=== PATIENT | male | born 1985 | race Hispanic/Latino ===

== ENCOUNTER 2017-04-05 00:57 | Inpatient (IN) | payer BC ==
[2017-04-05] MEDS ORDERED: Sodium Chloride 0.9% 1,000 ML IV ONE (01:18)
[2017-04-05] MEDS ORDERED: Iohexol 240 (50 ml) PO ONE (01:18)
[2017-04-05 02:00] LABS: RBC URINE 1 /hpf (0-3); URINE BILIRUBIN NEGATIVE (NEGATIVE); URINE BLOOD NEGATIVE (NEGATIVE); URINE COLOR Yellow (YELLOW); URINE GLUCOSE (UA) NORMAL (Normal); URINE KETONE NEGATIVE (NEGATIVE); URINE LEUKOCYTE ESTERASE NEG Leu/uL (Negative); URINE PROTEIN NEGATIVE (NEGATIVE); URINE UROBILINOGEN NORMAL mg/dL (0.2-1.0); WBC URINE < 1 /hpf (0-5)
[2017-04-05 02:00] LABS: BASO % 0.4 % (0.0-2.0); EOS # 0.1 K/uL (0.0-0.7); EOS % 1.3 % (0.0-4.0); HEMATOCRIT 41.9 % (35.0-51.0); LYMPH # 2.9 K/uL (1.0-4.3); LYMPH % 29.7 % (20.0-40.0); MEAN CELL VOLUME 91.1 fL (80.0-94.0); MEAN CORPUSCULAR HEMOGLOBIN 30.5 pg (27.0-31.0); MEAN CORPUSCULAR HGB CONC 33.5 g/dL (33.0-37.0); MEAN PLATELET VOLUME 7.6 fL (7.2-11.7); MONO # 0.4 K/uL (0.0-0.8); MONO % 4.7 % (0.0-10.0); RED CELL DISTRIBUTION WIDTH 12.8 % (11.5-14.5); WHITE BLOOD COUNT 9.6 K/uL (4.8-10.8)
--- NOTE | 2017-04-05 02:10 | C.PDOC ---
History Of Present Illness 32 year old patient presents to the ED complaining of a sudden onset of abdominal pain. Patient states the pain is in his left quadrants and mid- epigastric. Patient has a history of colitis and gets humira injections. Patient denies dysuria, hematuria, nausea or vomiting. Time Seen by Provider: 04/05/17 01:18 Chief Complaint (Nursing): Abdominal Pain History Per: Patient History/Exam Limitations: no limitations Onset/Duration Of Symptoms: Sudden Onset Current Symptoms Are (Timing): Still Present Context: Other Severity: Moderate Pain Scale Rating Of: 4 Location Of Pain/Discomfort: Epigastric, LUQ, LLQ Radiation Of Pain To:: None Quality Of Discomfort: "Pain" Exacerbating Factors: None Alleviating Factors: None Last Bowel Movement: Today Recent travel outside of the [place]: No Past Medical History Reviewed: Historical Data, Nursing Documentation, Vital Signs Vital Signs: Last Vital Signs Temp 97.8 F 04/05/17 01:05 Pulse 84 04/05/17 01:05 Resp 14 04/05/17 01:05 BP 124/75 04/05/17 01:05 Pulse Ox 97 04/05/17 04:23 Family History: States: Unknown Family Hx - Social History Hx Alcohol Use: No Hx Substance Use: No - Immunization History Hx Tetanus Toxoid Vaccination: Yes Hx Influenza Vaccination: Yes Hx Pneumococcal Vaccination: No Review Of Systems Except As Marked, All Systems Reviewed And Found Negative. Gastrointestinal: Positive for: Abdominal Pain (left quadrants; mid epigastric) . Negative for: Nausea, Vomiting Genitourinary: Negative for: Dysuria, Hematuria Physical Exam - Physical Exam Appears: Non-toxic, Other (mild distress) Skin: Warm, Dry Head: Atraumatic, Normacephalic Neck: Normal ROM, Supple Chest: Symmetrical Cardiovascular: Rhythm Regular Respiratory: Normal Breath Sounds, No Rales, No Rhonchi, No Wheezing Gastrointestinal/Abdominal: Soft, Tenderness (bilateral left quadrants), No Guarding, Rebound (questionable) Back: Normal Inspection, No CVA Tenderness Extremity: Normal ROM Neurological/Psych: Oriented x3 Gait: Steady ED Course And Treatment - Laboratory Results Result Diagrams: 04/05/17 01:52 04/05/17 01:52 O2 Sat by Pulse Oximetry: 97 (room air) Pulse Ox Interpretation: Normal - CT Scan/US Abdomen/Pelvis CT Other Rad Studies (CT/US): Read By Radiologist (Sanford Haq MD), Radiology Report Reviewed CT/US Interpretation: EXAM: CT Abdomen and Pelvis With Intravenous Contrast. CLINICAL HISTORY: 32 years old, male; Pain; Abdominal pain. TECHNIQUE: Axial computed tomography images of the abdomen and pelvis with intravenous. contrast. This CT exam was performed using one or more of the following dose reduction. techniques: automated exposure control, adjustment of the mA and/or kV according to patient size,. and/or use of iterative reconstruction technique. Coronal and sagittal reformatted images were. created and reviewed. COMPARISON: No relevant prior studies available. FINDINGS: Lower thorax: No acute findings. ABDOMEN: Liver: Unremarkable. No mass. Gallbladder and bile ducts: Small stones in the gallbladder. Gallbladder otherwise unremarkable. Pancreas: Unremarkable. No mass. No ductal dilation. Spleen: Unremarkable. No splenomegaly. Adrenals: Unremarkable. No mass. Kidneys and ureters: Unremarkable. No solid mass. No hydronephrosis. Stomach and bowel: Moderate fecal retention in the colon consistent with constipation. Appendix: Mucosal thickening in the appendix which measures 9 mm in diameter. Surrounding. inflammation. PELVIS: Bladder: Unremarkable. No mass. Reproductive: Unremarkable as visualized. ABDOMEN and PELVIS: Intraperitoneal space: Unremarkable. No free air. No significant fluid collection. Bones/joints: No acute fracture. No dislocation. Soft tissues: Unremarkable. Vasculature: Unremarkable. No abdominal aortic aneurysm. Lymph nodes: Unremarkable. No enlarged lymph nodes. IMPRESSION: 1. Mucosal thickening in the appendix which measures 9 mm in diameter. Surrounding. inflammation. Findings consistent with acute appendicitis. No rupture. 2. Small stones in the gallbladder. Gallbladder otherwise unremarkable. 3. Moderate fecal retention in the colon consistent with constipation. Progress Note: Plan: Abdomen/Pelvis CT, Labs, IV fluids, Iohexol, Toradol Disposition Discussed With : Panda Gao Doctor Will See Patient In The: Hospital Counseled Patient/Family Regarding: Diagnosis - Disposition Disposition: HOSPITALIZED Disposition Time: 04:15 Condition: STABLE - POA Present On Arrival: None - Clinical Impression Clinical Impression: Abdominal pain, Acute appendicitis - Scribe Statement The provider has reviewed the documentation as recorded by the Cassi Willoughby Provider Attestation: All medical record entries made by the Teresaibalison were at my direction and personally dictated by me. I have reviewed the chart and agree that the record accurately reflects my personal performance of the history, physical exam, medical decision making, and the department course for this patient. I have also personally directed, reviewed, and agree with the discharge instructions and disposition.
[2017-04-05 02:16] LABS: CHLORIDE 100 mmol/L (98-107)
[2017-04-05 02:17] LABS: POTASSIUM 4.1 mmol/L (3.6-5.2); SODIUM 140 mmol/L (132-148)
[2017-04-05 02:19] LABS: ALB/GLOB RATIO 1.7 (1.0-2.1); ALKALINE PHOSPHATASE 72 U/L (38-126); AST/SGOT 28 U/L (17-59); BILIRUBIN,TOTAL 0.5 mg/dL (0.2-1.3); BLOOD UREA NITROGEN 16 mg/dL (9-20); CARBON DIOXIDE 28 mmol/L (22-30); GFR AFRICAN-AMERICAN > 60; GLUCOSE,RANDOM 87 mg/dL (75-110); TOTAL PROTEIN 6.5 g/dL (6.3-8.3)
[2017-04-05 02:20] LABS: ALT/SGPT 35 U/L (21-72); CALCIUM 8.5 mg/dl (8.6-10.4)
[2017-04-05] MEDS ORDERED: Morphine 4 MG/ML VIAL IV PRN ×2 (05:15)
[2017-04-05] MEDS: Ciprofloxacin 400mg/200ml D5W 400 MG/200 ML BAG IVPB SCH ×2 (05:36→17:08)
[2017-04-05] MEDS: Lactated Ringer's 1,000 ML IV SCH ×3 (05:40→21:51)
[2017-04-05] MEDS: metroNIDAZOLE IV 500 mg/100 ml 500 MG/100 ML BAG IVPB SCH ×3 (05:44→21:50)
--- NOTE | 2017-04-05 05:47 | CP.PCM.HP ---
<Clarice Patterson - Last Filed: 04/05/17 05:42> History of Present Illness - History of Present Illness History of Present Illness: Surgery: Dr. Gao CC: bilateral lower abdominal pain HPI: Patient is a 32 y/o male w/ pmh of UC currently taking Humira shots presents complaining of acute onset of bilateral lower abdominal pain. He reports the pain as severe and sharp. He reports pain in similar area in the past but never this severe. He denies n/v until given contrast for imaging. He denies f/c. He reports tolerating dinner around 8pm without difficulty. He states his last BM was yesterday and was reported as normal. He states he recovered from a recent bout of gastroenteritis 1 week ago. He was seen by primary care doctor who prescribed Zantac. He reports compliance w/ his humira shots. He states he feels pressure in the epigastric region of his stomach as well which makes him feel somewhat short of breath. He denies left side chest pain, syncope, diaphoresis. PMH: ulcerative colitis, bipolar depression PSH: colonoscopy Social: denies etoh, tobacco, or drug use Present on Admission - Present on Admission Any Indicators Present on Admission: No Review of Systems - Constitutional Constitutional: absent: Anorexia, Chills, Fever - EENT Eyes: absent: Blurred Vision, Change in Vision Ears: absent: Disequilibrium, Dizziness Nose/Mouth/Throat: absent: Epistaxis, Nasal Trauma - Cardiovascular Cardiovascular: absent: Chest Pain, Leg Edema - Respiratory Respiratory: As Per HPI. absent: Cough, Wheezing - Gastrointestinal Gastrointestinal: Abdominal Pain. absent: Bloating, Constipation, Diarrhea, Hematochezia, Melena, Nausea, Vomiting - Genitourinary Genitourinary: absent: Hematuria, Pyuria - Musculoskeletal Musculoskeletal: absent: Numbness, Tingling - Integumentary Integumentary: absent: Sores, Wounds - Neurological Neurological: absent: Syncope, Weakness - Psychiatric Psychiatric: Anxiety, Depression - Endocrine Endocrine: absent: Polydipsia, Polyphagia - Hematologic/Lymphatic Hematologic: absent: Easy Bleeding, Easy Bruising Past Patient History - Past Social History Smoking Status: Never Smoked - GASTROINTESTINAL Hx Gastrointestinal Disorders: Yes Hx Colitis: Yes (Ulcerative Colitis ) Other/Comment: Ulcerative Colitis - PSYCHIATRIC Hx Substance Use: No - SURGICAL HISTORY Hx Surgeries: Yes (colonoscopy ) - ANESTHESIA Hx Anesthesia: Yes (colonoscopy ) Meds Allergies/Adverse Reactions: Allergies Allergy/AdvReac Type Severity Reaction Status Date / Time cefaclor [From Ceclor] Allergy Verified 04/05/17 01:11 Physical Exam - Constitutional Appears: Well, Non-toxic, No Acute Distress - Head Exam Head Exam: ATRAUMATIC, NORMOCEPHALIC - Eye Exam Eye Exam: EOMI, Normal appearance - ENT Exam ENT Exam: Mucous Membranes Moist, Normal Oropharynx - Respiratory Exam Respiratory Exam: NORMAL BREATHING PATTERN. absent: Respiratory Distress - Cardiovascular Exam Cardiovascular Exam: REGULAR RHYTHM. absent: Tachycardia - GI/Abdominal Exam GI & Abdominal Exam: Guarding (bilateral left and right lower abdomen ), Soft, Tenderness (right and left lower abdomen, suprapubic tenderness ). absent: Distended, Rebound, Rigid - Extremities Exam Extremities exam: Positive for: normal inspection. Negative for: calf tenderness - Back Exam Back exam: absent: CVA tenderness (L), CVA tenderness (R) - Neurological Exam Neurological exam: Alert, Oriented x3 - Psychiatric Exam Psychiatric exam: Normal Affect, Normal Mood - Skin Skin Exam: Dry, Intact, Normal Color, Warm Results - Vital Signs Recent Vital Signs: Last Vital Signs Temp 97.8 F 04/05/17 01:05 Pulse 84 04/05/17 01:05 Resp 14 04/05/17 01:05 BP 124/75 04/05/17 01:05 Pulse Ox 97 04/05/17 04:26 - Labs Result Diagrams: 04/05/17 01:52 04/05/17 01:52 Assessment & Plan - Assessment and Plan (Free Text) Assessment: 32 y/o male w/ abdominal pain 2/2 possible appendicitis vs ulcerative colitis flare Plan: -NPO -IVFs -IV abx -Protonix -pain control -nausea control -SCDs -am labs -review imaging -possible OR pending attending evaluation -further recs per Dr. Gao AKWhite PGY1 <Panda Gao - Last Filed: 04/07/17 22:41> Results - Vital Signs Recent Vital Signs: Last Vital Signs Temp 97.6 F 04/06/17 23:12 Pulse 61 04/06/17 23:12 Resp 20 04/06/17 23:12 BP 103/64 04/06/17 23:12 Pulse Ox 95 05/20/17 23:12 - Labs Result Diagrams: 04/06/17 13:36 04/06/17 13:36 Attending/Attestation - Attestation I have personally seen and examined this patient.: Yes I have fully participated in the care of the patient.: Yes I have reviewed all pertinent clinical information: Yes Notes (Text): 04/07/17 22:41 Pt was seen and examined at bedside on 04/05/17 Agree with above note and assessment Pt with Upper and Lower abdominal pain and Ulcerative Colitis No clinical evidence of Acute appendicitis C.w current mx Plan d.w pt in detail Risk and benefit explained in detail.
--- NOTE | 2017-04-05 09:06 | RAD ---
HISTORY: chest pain COMPARISON: None available. TECHNIQUE: Chest, one view. FINDINGS: Examination limited by habitus. LUNGS: No focal consolidation. Please note that chest x-ray has limited sensitivity for the detection of pulmonary masses. PLEURA: No significant pleural effusion identified. No definite pneumothorax . CARDIOVASCULAR: The cardiomediastinal silhouette appears within normal limits of size. OSSEOUS STRUCTURES: No acute osseous abnormality identified. VISUALIZED UPPER ABDOMEN: Unremarkable. OTHER FINDINGS: None. IMPRESSION: No focal consolidation, significant pleural effusion, or definite pneumothorax identified.
--- NOTE | 2017-04-05 09:28 | CT ---
PROCEDURE: CT Abdomen and Pelvis with contrast HISTORY: abd pain COMPARISON: None. TECHNIQUE: Contrast dose: 100 mL Omnipaque 350 Radiation dose: Total exam DLP = 3536.25 mGy-cm. This CT exam was performed using one or more of the following dose reduction techniques: Automated exposure control, adjustment of the mA and/or kV according to patient size, and/or use of iterative reconstruction technique. FINDINGS: LOWER THORAX: Unremarkable. LIVER: Cholelithiasis. No mural thickening or pericholecystic fluid. GALLBLADDER AND BILE DUCTS: Unremarkable. PANCREAS: Unremarkable. No gross lesion or ductal dilatation. SPLEEN: Unremarkable. ADRENALS: Unremarkable. No mass. KIDNEYS AND URETERS: Unremarkable. No hydronephrosis. No solid mass. VASCULATURE: Unremarkable. No aortic aneurysm. BOWEL: Unremarkable. No obstruction. No gross mural thickening. APPENDIX: The appendix is distended with fluid measuring 9-10 mm in diameter. Periappendiceal inflammatory change and a small amount of ольга fluid are noted. No periappendiceal abscess. No free intraperitoneal air. Findings consistent with uncomplicated acute appendicitis. PERITONEUM: Unremarkable. No free fluid. No free air. LYMPH NODES: No retroperitoneal or pelvic lymphadenopathy. Few mildly enlarged mesenteric nodes medial to the cecum and proximal ascending colon. . BLADDER: Unremarkable. REPRODUCTIVE: Normal prostate BONES: No acute fracture. OTHER FINDINGS: None. IMPRESSION: Findings consistent with acute uncomplicated appendicitis. No periappendiceal abscess or evidence of free intraperitoneal air. Cholelithiasis without evidence of cholecystitis. No other significant abnormality.
[2017-04-06] MEDS: Lactated Ringer's 1,000 ML IV SCH ×2 (04:16→17:15)
[2017-04-06] MEDS: Ciprofloxacin 400mg/200ml D5W 400 MG/200 ML BAG IVPB SCH ×2 (04:18→17:06)
[2017-04-06] MEDS: metroNIDAZOLE IV 500 mg/100 ml 500 MG/100 ML BAG IVPB SCH ×3 (05:40→21:23)
--- NOTE | 2017-04-06 12:05 | CP.PCM.PN ---
Subjective - Date & Time of Evaluation Date of Evaluation: 04/06/17 Time of Evaluation: 08:16 - Subjective Subjective: SURGERY NOTE FOR DR. DAVIES 32M seen and examined at bedside. Patient states pain is improving, denies nausea, vomiting. Objective - Vital Signs/Intake and Output Vital Signs (last 24 hours): Temp Pulse Resp BP Pulse Ox 98.2 F 77 20 101/65 94 L 04/06/17 00:00 04/06/17 00:00 04/06/17 00:00 04/06/17 00:00 04/06/17 00:00 Intake and Output: 04/06/17 04/06/17 06:59 18:59 Intake Total 1000 1025 Balance 1000 1025 - Medications Medications: Current Medications Divalproex Sodium (Depakote Er) 1,000 mg PO [facility] Docusate Sodium (Colace) 100 mg PO BID [facility] Last Admin: 04/06/17 10:07 Dose: 100 mg Home Med (Adalimumab [Humira Pen]) 40 mg SC DAILY [facility] Ciprofloxacin (Cipro 400mg/200ml Dsw) 400 mg in 200 mls @ 133 mls/hr IVPB Q12H [facility] Last Admin: 04/06/17 04:18 Dose: 133 mls/hr Metronidazole (Flagyl) 500 mg in 100 mls @ 100 mls/hr IVPB Q8 [facility] Last Admin: 04/06/17 05:40 Dose: 100 mls/hr Lactated Ringer's (Lactated Ringer's) 1,000 mls @ 125 mls/hr IV .Q8H [facility] Last Admin: 04/06/17 04:16 Dose: 125 mls/hr [facility]) [facility] Last Admin: 04/06/17 10:07 Dose: 200 mg Morphine Sulfate (Morphine) 4 mg IV Q4 PRN PRN Reason: Pain, moderate (4-7) Last Admin: 04/05/17 07:38 Dose: 4 mg Morphine Sulfate (Morphine) 6 mg IV Q6 PRN PRN Reason: Pain, severe (8-10) Last Admin: 04/05/17 17:57 Dose: 6 mg Ondansetron HCl (Zofran Inj) 4 mg IVP Q4 PRN PRN Reason: Nausea/Vomiting Last Admin: 04/05/17 17:57 Dose: 4 mg Pantoprazole Sodium (Protonix Inj) 40 mg IVP DAILY [facility] Last Admin: 04/06/17 10:07 Dose: 40 mg Sertraline HCl (Zoloft) 75 mg PO HS [facility] - Constitutional Appears: Non-toxic, No Acute Distress - Head Exam Head Exam: ATRAUMATIC - Respiratory Exam Respiratory Exam: Clear to Ausculation Bilateral, NORMAL BREATHING PATTERN - Cardiovascular Exam Cardiovascular Exam: REGULAR RHYTHM, +S1, +S2 - GI/Abdominal Exam GI & Abdominal Exam: Soft, Tenderness (very mildly in RLQ and epigastric). absent: Distended, Firm, Guarding, Rigid, Rebound - Neurological Exam Neurological Exam: Alert, Awake Assessment and Plan - Assessment and Plan (Free Text) Assessment: 32M with hx of ulcerative colitis presents with acute uncomplicated appendicitis as per CT - continue antibiotic - serial abdominal exams Further recs discuss with Dr Sima Martinez, PGY1
[2017-04-06 13:47] LABS: CHLORIDE 98 mmol/L (98-107)
[2017-04-06 13:48] LABS: POTASSIUM 4.1 mmol/L (3.6-5.2); SODIUM 139 mmol/L (132-148)
[2017-04-06 13:49] LABS: BASO % 0.3 % (0.0-2.0); EOS # 0.1 K/uL (0.0-0.7); HEMATOCRIT 37.7 % (35.0-51.0); LYMPH # 2.4 K/uL (1.0-4.3); LYMPH % 26.2 % (20.0-40.0); MEAN CELL VOLUME 92.2 fL (80.0-94.0); MEAN CORPUSCULAR HEMOGLOBIN 31.2 pg (27.0-31.0); MEAN CORPUSCULAR HGB CONC 33.8 g/dL (33.0-37.0); MEAN PLATELET VOLUME 7.6 fL (7.2-11.7); MONO # 0.8 K/uL (0.0-0.8); MONO % 9.4 % (0.0-10.0); RED CELL DISTRIBUTION WIDTH 12.8 % (11.5-14.5)
[2017-04-06 13:50] LABS: GFR AFRICAN-AMERICAN > 60
[2017-04-06 13:51] LABS: BLOOD UREA NITROGEN 8 mg/dL (9-20); CARBON DIOXIDE 33 mmol/L (22-30); GLUCOSE,RANDOM 99 mg/dL (75-110)
[2017-04-06 17:39] VITALS: RESP 20
[2017-04-06] MEDS ORDERED: Divalproex 500 mg ER Tab PO SCH (22:00)
[2017-04-07 00:40] VITALS: BP 103/64; PULSE 61; TEMP 97.6; O2SAT 95
[2017-04-07] MEDS: Ciprofloxacin 400mg/200ml D5W 400 MG/200 ML BAG IVPB SCH (05:00)
[2017-04-07] MEDS: metroNIDAZOLE IV 500 mg/100 ml 500 MG/100 ML BAG IVPB SCH (06:49)
--- NOTE | 2017-04-07 11:43 | CP.PCM.DIS ---
Provider - Provider Date of Admission: 04/05/17 04:16 Attending physician: Panda Gao MD Time Spent in preparation of Discharge (in minutes): 5 Diagnosis - Discharge Diagnosis (1) Appendicitis Status: Suspected Hospital Course - Lab Results Lab Results: Most Recent Lab Values WBC 9.0 K/uL (4.8-10.8) 04/06/17 13:36 RBC 4.09 Mil/uL (4.40-5.90) L 04/06/17 13:36 Hgb 12.7 g/dL (12.0-18.0) 04/06/17 13:36 Hct 37.7 % (35.0-51.0) 04/06/17 13:36 MCV 92.2 fL (80.0-94.0) 04/06/17 13:36 MCH 31.2 pg (27.0-31.0) H 04/06/17 13:36 MCHC 33.8 g/dL (33.0-37.0) 04/06/17 13:36 RDW 12.8 % (11.5-14.5) 04/06/17 13:36 Plt Count 163 K/uL (130-400) 04/06/17 13:36 MPV 7.6 fL (7.2-11.7) 04/06/17 13:36 Neut % (Auto) 63.1 % (50.0-75.0) 04/06/17 13:36 Lymph % (Auto) 26.2 % (20.0-40.0) 04/06/17 13:36 Geary % (Auto) 9.4 % (0.0-10.0) 04/06/17 13:36 Eos % (Auto) 1.0 % (0.0-4.0) 04/06/17 13:36 Baso % (Auto) 0.3 % (0.0-2.0) 04/06/17 13:36 Neut # 5.7 K/uL (1.8-7.0) 04/06/17 13:36 Lymph # 2.4 K/uL (1.0-4.3) 04/06/17 13:36 Geary # 0.8 K/uL (0.0-0.8) 04/06/17 13:36 Eos # 0.1 K/uL (0.0-0.7) 04/06/17 13:36 Baso # 0.0 K/uL (0.0-0.2) 04/06/17 13:36 Sodium 139 mmol/L (132-148) 04/06/17 13:36 Potassium 4.1 mmol/L (3.6-5.2) 04/06/17 13:36 Chloride 98 mmol/L (98-107) 04/06/17 13:36 Carbon Dioxide 33 mmol/L (22-30) H 04/06/17 13:36 Anion Gap 12 (10-20) 04/06/17 13:36 BUN 8 mg/dL (9-20) L 04/06/17 13:36 Creatinine 1.1 MG/DL (0.8-1.5) 04/06/17 13:36 Est GFR ( Amer) > 60 04/06/17 13:36 Est GFR (Non-Af Amer) > 60 04/06/17 13:36 Random Glucose 99 mg/dL (75-110) 04/06/17 13:36 Calcium 9.0 mg/dl (8.6-10.4) 04/06/17 13:36 Total Bilirubin 0.5 mg/dL (0.2-1.3) 04/05/17 01:52 AST 28 U/L (17-59) 04/05/17 01:52 ALT 35 U/L (21-72) 04/05/17 01:52 Alkaline Phosphatase 72 U/L (38-126) 04/05/17 01:52 Total Creatine Kinase 44 U/L (55-170) L 04/05/17 08:39 CK-MB (Mass) < 0.22 ng/mL (0.0-3.38) 04/05/17 08:39 Troponin I, Quant 0.0170 ng/mL (0.00-0.120) 04/05/17 08:39 Total Protein 6.5 g/dL (6.3-8.3) 04/05/17 01:52 Albumin 4.1 g/dL (3.5-5.0) 04/05/17 01:52 Globulin 2.4 gm/dL (2.2-3.9) 04/05/17 01:52 Albumin/Globulin Ratio 1.7 (1.0-2.1) 04/05/17 01:52 Lipase 44 U/L (23-300) 04/05/17 01:52 Urine Color Yellow (YELLOW) 04/05/17 01:54 Urine Clarity Clear (Clear) 04/05/17 01:54 Urine pH 6.0 (5.0-8.0) 04/05/17 01:54 Ur Specific Semmes 1.013 (1.003-1.030) 04/05/17 01:54 Urine Protein Negative mg/dL (NEGATIVE) 04/05/17 01:54 Urine Glucose (UA) Normal mg/dL (Normal) 04/05/17 01:54 Urine Ketones Negative mg/dL (NEGATIVE) 04/05/17 01:54 Urine Blood Negative (NEGATIVE) 04/05/17 01:54 Urine Nitrate Negative (NEGATIVE) 04/05/17 01:54 Urine Bilirubin Negative (NEGATIVE) 04/05/17 01:54 Urine Urobilinogen Normal mg/dL (0.2-1.0) 04/05/17 01:54 Ur Leukocyte Esterase Neg Sebastián/uL (Negative) 04/05/17 01:54 Urine WBC (Auto) < 1 /hpf (0-5) 04/05/17 01:54 Urine RBC (Auto) 1 /hpf (0-3) 04/05/17 01:54 Ur Squamous Epith Cells < 1 /hpf (0-5) 04/05/17 01:54 - Hospital Course Hospital Course: 32M with PMHx of UC on Humira, was admitted to for RLQ abdominal pain with suspected appendicitis. Due to pt's hx of UC he was treated conservatively with IV ABX and pain management. His white count remained normal and he was afebrile throughout the course of the hospital stay. This morning pt states he feels well , admits to tolerating a diet and ambulating. Denies N/V, F/C. Pt ok to DC home with PO ABX. Will f/u in 1-2 weeks. He is advised to return to the ER if symptoms return or condition worsens. Discharge Exam - Head Exam Head Exam: ATRAUMATIC, NORMOCEPHALIC - Eye Exam Eye Exam: Normal appearance - ENT Exam ENT Exam: Mucous Membranes Moist - Respiratory Exam Respiratory Exam: NORMAL BREATHING PATTERN - Cardiovascular Exam Cardiovascular Exam: RRR - GI/Abdominal Exam GI & Abdominal Exam: Soft. absent: Distended, Guarding, Tenderness - Extremities Exam Extremities exam: full ROM - Neurological Exam Neurological exam: Alert, Oriented x3 - Skin Skin Exam: Dry, Intact, Warm Discharge Plan - Discharge Medications Prescriptions: Ciprofloxacin HCl [Cipro] 500 mg PO Q12H 5 Days Metronidazole [Flagyl] 500 mg PO Q8H 5 Days - Follow Up Plan Condition: STABLE Disposition: HOME/ ROUTINE Instructions: Ciprofloxacin (By mouth), Metronidazole (By mouth), Appendicitis (DC), Acute Abdominal Pain (DC), Acute Abdominal Pain (GEN)
--- NOTE | 2017-05-09 19:39 | CARD ---
APPROVED REPORT EKG Measurement Heart [id number] <Conclusion> Normal sinus rhythm Normal ECG
== END 2017-04-07 13:41 | disposition home or self-care (01) | DRG 394 ==
LOC: C.ER 00:57 → C.9E 04:16 → C.5T 04:47
PROVIDERS: ADMIT Surgery Surgical Critical Care; ATTEND Surgery Surgical Critical Care
DX: K35.80 Unspecified acute appendicitis (principal); K51.90 Ulcerative colitis, unspecified, without complications; F31.9 Bipolar disorder, unspecified; F32.9 Major depressive disorder, single episode, unspecified